=== PATIENT | male | born 1985 | race Caucasian/White ===

== ENCOUNTER 2018-04-26 15:16 | Emergency (ER) | payer OTHER ==
[2018-04-26 15:20] VITALS: BMI 26.6
[2018-04-26 16:22] LABS: BASO % 1.4 % (0-2.0); EOS % 5.7 % (0-4.5); HEMATOCRIT 45.3 % (35.4-49); HEMOGLOBIN 14.9 GM/dl (11.7-16.9); LYMPH % 33.3 % (8-40); MCH 32.4 pg (25.7-33.7); MEAN CELL VOLUME 98.1 fl (80-96); MEAN PLT VOLUME 8.4 fl (7.5-11.1); MONO % 9.3 % (3.8-10.2); NEUT % 50.3 % (42.8-82.8); PLATELET COUNT 310 K/MM3 (134-434); RBC 4.62 M/mm3 (4.00-5.60); RDW 12.9 % (11.9-15.9); WHITE BLOOD COUNT 5.8 K/mm3 (4.0-10.8)
[2018-04-26 16:30] LABS: ALBUMIN 4.6 g/dl (3.5-5.0); ALK PHOS 62 U/L (32-92); ANION GAP 8 MMOL/L (8-16); BILIRUBIN,TOTAL 0.5 mg/dl (0.2-1.0); BLOOD UREA NITROGEN 16 mg/dl (7-18); CALCIUM 9.6 mg/dl (8.4-10.2); CHLORIDE 100 mmol/L (98-107); CO2 29 mmol/L (22-28); GLUCOSE,RANDOM 106 mg/dl (74-106); POTASSIUM 4.3 mmol/L (3.5-5.1); SGOT/AST 24 U/L (10-42); SGPT/ALT 19 U/L (10-40); SODIUM 137 mmol/L (136-145)
[2018-04-26] MEDS ORDERED: RANITIDINE HCL 150 MG TABLET (FP) PO ONE (17:40)
[2018-04-26] MEDS ORDERED: FAMOTIDINE 20 MG TABLET PO ONE (17:40)
[2018-04-26 17:43] VITALS: BP 111/60; PULSE 69; TEMP 98.5
[2018-04-26] MEDS ORDERED: RANITIDINE HCL 150 MG TABLET (FP) ONE (17:43)
[2018-04-26] MEDS ORDERED: FAMOTIDINE 20 MG TABLET ONE (17:44)
--- NOTE | 2018-04-26 17:45 | PDOC ---
History of Present Illness - General Chief Complaint: Bleeding from Anus Stated Complaint: BLOOD IN STOOL Time Seen by Provider: 04/26/18 15:26 Past History - Past Medical History Allergies/Adverse Reactions: Allergies Allergy/AdvReac Type Severity Reaction Status Date / Time No Known Allergies Allergy Verified 04/26/18 15:17 Home Medications: Ambulatory Orders NK [No Known Home Medication] 04/26/18 COPD: No - Suicide/Smoking/Psychosocial Hx Smoking History: Never smoked Hx Alcohol Use: Yes Drug/Substance Use Hx: Yes Substance Use Type: Alcohol, Marijuana *Physical Exam - Vital Signs Last Vital Signs Temp Pulse Resp BP Pulse Ox 0/0 L 04/26/18 15:17 - Physical Exam Comments: 04/26/18 17:45 rectal: no hemorrjhoids, no gross blood. ED Treatment Course - LABORATORY CBC & Chemistry Diagram: 04/26/18 15:54 04/26/18 15:54 - ADDITIONAL ORDERS Additional order review: Laboratory Results 04/26/18 04/26/18 16:33 15:54 Sodium 137 Potassium 4.3 Chloride 100 Carbon Dioxide 29 H Anion Gap 8 BUN 16 Creatinine 1.0 Creat Clearance w eGFR > 60 Random Glucose 106 Calcium 9.6 Total Bilirubin 0.5 AST 24 ALT 19 Alkaline Phosphatase 62 Total Protein 8.0 Albumin 4.6 Stool Occult Blood Positive 04/26/18 15:54 RBC 4.62 MCV 98.1 H MCHC 33.0 RDW 12.9 MPV 8.4 Neutrophils % 50.3 Lymphocytes % 33.3 Monocytes % 9.3 Eosinophils % 5.7 H Basophils % 1.4 *DC/Admit/Observation/Transfer Diagnosis at time of Disposition: GI bleed - Discharge Dispostion Disposition: HOME Condition at time of disposition: Stable Decision to Admit order: No - Referrals Referrals: Boris Navarrete MD [Staff Physician] - - Patient Instructions Printed Discharge Instructions: Gastrointestinal Bleeding Additional Instructions: You were seen in the ED for complaints of rectal bleeding. In the ED you were evaluated with labwork. Your results were significant blood in the stool, but all other labwork was unremarkable. There does not appear to be an acute need for immediate hospitalization. You are advised to follow up with your primary care physician within 1 week. 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 Please follow up with gastroenterology within 1 week. Return to the ED immediately if you experience worsening blood in the stool, worsening diarrhea, constipation, nausea, vomiting, fevers or abdominal pain. - Post Discharge Activity
== END 2018-04-26 18:05 | disposition home or self-care (01) ==
LOC: FER 15:16
DX: K92.2 Gastrointestinal hemorrhage, unspecified (principal)
CPT/HCPCS: 36415; 80053; 82272; 85025; 86850; 86900; 86901; 99283-25

== ENCOUNTER 2020-06-22 14:37 | Emergency (ER) | payer OTHER ==
[2020-06-22 14:51] VITALS: BP 149/92; PULSE 94; TEMP 99.1; BMI 25.7
[2020-06-22 16:29] LABS: ALBUMIN 4.1 g/dl (3.4-5.0); BILIRUBIN,TOTAL 0.4 mg/dl (0.2-1); CALCIUM 9.8 mg/dl (8.5-10); POTASSIUM 4.7 mmol/L (3.5-5.1); TOT PROT 8.1 g/dl (6.4-8.2)
[2020-06-22 16:46] LABS: BASO % 0.8 % (0-2.0); EOS % 2.8 % (0-4.5); HEMATOCRIT 45.7 % (35.4-49); HEMOGLOBIN 15.3 GM/dL (11.7-16.9); LYMPH % 20.4 % (8-40); MCH 32.7 pg (25.7-33.7); MCHC 33.5 g/dl (32.0-35.9); MEAN CELL VOLUME 97.6 fl (80-96); MEAN PLT VOLUME 8.1 fl (7.5-11.1); MONO % 11.4 % (3.8-10.2); NEUT % 64.6 % (42.8-82.8); PLATELET COUNT 367 K/MM3 (134-434); RBC 4.68 M/mm3 (4.00-5.60); RDW 13.1 % (11.9-15.9); WHITE BLOOD COUNT 11.6 K/mm3 (4.0-10.0)
== END 2020-06-22 17:40 | disposition home or self-care (01) ==
LOC: FER 14:37
DX: R07.9 Chest pain, unspecified (principal)
CPT/HCPCS: 36415; 71045-TC-FY; 80053; 82550; 82553; 84484; 85025; 93005; 99284-25